=== PATIENT | female | born 1950 | race Caucasian/White ===

== ENCOUNTER 2018-04-19 16:35 | Inpatient (IN) | payer MEDICARE, MEDICAID ==
[~2018-04-19] VITALS: Ht 162.6 cm; Wt 68.0 kg
[2018-04-19] VITALS: BP 125/59
--- NOTE | 2018-04-19 17:00 | NUR ---
ED Nurse Note: Pt AAOx4. pt. brought in by ambulance from [facility] due to low abdominal pain without N/V/D. Reports no pain at abdominal pain at this time
--- NOTE | 2018-04-19 17:26 | Emergency Room Report ---
History of Present Illness General Chief Complaint: Abdominal Pain Source: Medical Record Present Illness HPI 67-year-old female presents to the emergency department [facility] for complaints of abdominal pain and diarrhea as today. Patient reports that she does not have any pain today and has had normal bowel movements. Patient states that 3 days ago she had some nausea and 2 episodes of vomiting which resolves and then she had onset of her bowel symptoms. Patient reports cramping abdominal pain that was migratory she denies fevers or chills she denies blood in her stool. Patient works history of chronic cellulitis in the bilateral lower extremities. She denies chest pain, palpitations, shortness of breath, dizziness or sudden onset of the headache. reports hx of DM. Allergies: Coded Allergies: No Known Allergies (Unverified , 04/19/18) Patient History Past Medical History: see triage record, DM Past Surgical History: none Pertinent Family History: none Reviewed Nursing Documentation: PMH: Agreed; PSxH: Agreed Nursing Documentation-PMH Past Medical History: No History, Except For Hx Cardiac Problems: Yes - Hyperlipidemia Hx Hypertension: Yes Hx Diabetes: Yes Hx Gastrointestinal Problems: Yes - dysphagia Review of Systems All Other Systems: negative except mentioned in HPI Physical Exam Vital Signs Date Time Temp Pulse Resp B/P (MAP) Pulse Ox O2 Delivery O2 Flow Rate FiO2 04/19/18 16:39 99.1 77 18 128/65 94 Room Air Sp02 EP Interpretation: reviewed, normal General Appearance: no apparent distress, alert, GCS 15, non-toxic Head: normocephalic, atraumatic Eyes: bilateral eye normal inspection, bilateral eye PERRL ENT: hearing grossly normal, normal voice Neck: full range of motion Respiratory: lungs clear, normal breath sounds, speaking full sentences Cardiovascular #1: regular rate, rhythm Gastrointestinal: normal bowel sounds, non tender, soft, non-distended, no guarding Rectal: deferred Genitourinary: normal inspection, no CVA tenderness Musculoskeletal: back normal, normal range of motion, inflammation - bilateral lower extremities- garcia/calf- wound care wrapping on bilateral LE's Neurologic: alert, oriented x3, responsive, motor strength/tone normal, sensory intact, speech normal, grossly normal Psychiatric: judgement/insight normal Skin: normal color, no rash, warm/dry, well hydrated Medical Decision Making PA Attestation Dr. Mills is my supervising Physician whom patient management has been discussed with. Diagnostic Impression: Primary Impression: UTI (urinary tract infection) Qualified Codes: N30.01 - Acute cystitis with hematuria Additional Impression: Abdominal pain Qualified Codes: R10.30 - Lower abdominal pain, unspecified ER Course 67-year-old female presents to the emergency department sent in from [facility] for complaints of abdominal pain and diarrhea as today. Patient reports that she does not have any pain today and has had normal bowel movements. Patient states that 3 days ago she had some nausea and 2 episodes of vomiting which resolves and then she had onset of her bowel symptoms. Patient reports cramping abdominal pain that was migratory she denies fevers or chills she denies blood in her stool. Patient works history of chronic cellulitis in the bilateral lower extremities. She denies chest pain, palpitations, shortness of breath, dizziness or sudden onset of the headache. Ddx considered but are not limited to Diverticulitis, acute appy, diarrhea,UC, PUD, GE, pancreatitis, gallstone Vital signs: are WNL, pt. is afebrile H&PE are most consistent with dehydration, mild. ORDERS: -CBC, CMP, lipase, UA ED INTERVENTIONS: -- 1000NS DISPOSITION: at this time pt. will be admitted to Dr. Valdez for UTI. Dr. Valdez agreed to admit the pt. and to continue pt. care management. Labs Test 04/19/18 17:27 04/19/18 17:46 White Blood Count 8.8 K/UL (4.8-10.8) Red Blood Count 4.55 M/UL (4.20-5.40) Hemoglobin 11.8 G/DL (12.0-16.0) Hematocrit 37.1 % (37.0-47.0) Mean Corpuscular Volume 81 FL (80-99) Mean Corpuscular Hemoglobin 25.8 PG (27.0-31.0) Mean Corpuscular Hemoglobin Concent 31.7 G/DL (32.0-36.0) Red Cell Distribution Width 15.0 % (11.6-14.8) Platelet Count 279 K/UL (150-450) Mean Platelet Volume 5.7 FL (6.5-10.1) Neutrophils (%) (Auto) 69.2 % (45.0-75.0) Lymphocytes (%) (Auto) 18.9 % (20.0-45.0) Monocytes (%) (Auto) 8.2 % (1.0-10.0) Eosinophils (%) (Auto) 3.5 % (0.0-3.0) Basophils (%) (Auto) 0.2 % (0.0-2.0) Sodium Level 129 MMOL/L (136-145) Potassium Level 4.6 MMOL/L (3.5-5.1) Chloride Level 92 MMOL/L (98-107) Carbon Dioxide Level 31 MMOL/L (21-32) Anion Gap 6 mmol/L (5-15) Blood Urea Nitrogen 19 mg/dL (7-18) Creatinine 0.9 MG/DL (0.55-1.30) Estimat Glomerular Filtration Rate > 60 mL/min (>60) Glucose Level 117 MG/DL (74-106) Calcium Level 9.7 MG/DL (8.5-10.1) Total Bilirubin 0.3 MG/DL (0.2-1.0) Aspartate Amino Transf (AST/SGOT) 16 U/L (15-37) Alanine Aminotransferase (ALT/SGPT) 29 U/L (12-78) Alkaline Phosphatase 89 U/L (46-116) Troponin I 0.000 ng/mL (0.000-0.056) Total Protein 7.7 G/DL (6.4-8.2) Albumin 3.0 G/DL (3.4-5.0) Globulin 4.7 g/dL Albumin/Globulin Ratio 0.6 (1.0-2.7) Lipase 65 U/L (73-393) Urine Color Pale yellow Urine Appearance Turbid Urine pH 7 (4.5-8.0) Urine Specific [place] 1.010 (1.005-1.035) Urine Protein 3+ (NEGATIVE) Urine Glucose (UA) Negative (NEGATIVE) Urine Ketones Negative (NEGATIVE) Urine Blood 5+ (NEGATIVE) Urine Nitrite Negative (NEGATIVE) Urine Bilirubin Negative (NEGATIVE) Urine Urobilinogen Normal MG/DL (0.0-1.0) Urine Leukocyte Esterase 3+ (NEGATIVE) Urine RBC 2-4 /HPF (0 - 2) Urine WBC Tntc /HPF (0 - 2) Urine Squamous Epithelial Cells Few /LPF (NONE/OCC) Urine Bacteria Many /HPF (NONE) EKG Diagnostic Results EP Interpretation: Dr. Mills Rate: normal - 73 bpm Rhythm: NSR ST Segments: no acute changes ASA given to the pt in ED: No PA Scribe Text This Interpretation was scribed by AIDA Ferrara. Last Vital Signs Date Time Temp Pulse Resp B/P (MAP) Pulse Ox O2 Delivery O2 Flow Rate FiO2 04/19/18 16:39 99.1 77 18 128/65 94 Room Air Disposition: ADMITTED INPATIENT Condition: Serious Julia Ferrara Apr 19, 2018 17:26
--- NOTE | 2018-04-19 17:47 | NUR ---
ED Nurse Note: unable to scan the IV bag fluid. Scaner not scanning
[2018-04-19 17:56] LABS: BASOPHILS % (AUTO) 0.2 % (0.0-2.0); EOSINOPHILS % (AUTO) 3.5 % (0.0-3.0); HEMATOCRIT 37.1 % (37.0-47.0); HEMOGLOBIN 11.8 G/DL (12.0-16.0); LYMPHOCYTES % (AUTO) 18.9 % (20.0-45.0); MEAN CORPUSCULAR VOLUME 81 FL (80-99); MONOCYTES % (AUTO) 8.2 % (1.0-10.0); NEUTROPHILS % (AUTO) 69.2 % (45.0-75.0); PLATELET COUNT 279 K/UL (150-450); RED BLOOD COUNT 4.55 M/UL (4.20-5.40); WHITE BLOOD COUNT 8.8 K/UL (4.8-10.8)
[2018-04-19 17:59] LABS: APPEARANCE,URINE TURBID; BILIRUBIN, URINE NEGATIVE (NEGATIVE); COLOR,URINE PALE YELLOW; GLUCOSE, URINE (UA) NEGATIVE (NEGATIVE); KETONES,URINE NEGATIVE (NEGATIVE); LEUKOCYTE ESTERASE ,URINE 3+ (NEGATIVE); NITRITE,URINE NEGATIVE (NEGATIVE); PH,URINE 7 (4.5-8.0); PROTEIN,URINE 3+ (NEGATIVE); UROBILINOGEN,URINE NORMAL MG/DL (0.0-1.0)
[2018-04-19 18:12] LABS: ANION GAP 6 mmol/L (5-15); BLOOD UREA NITROGEN 19 mg/dL (7-18); CALCIUM 9.7 MG/DL (8.5-10.1); CARBON DIOXIDE 31 MMOL/L (21-32); CHLORIDE 92 MMOL/L (98-107); CREATININE 0.9 MG/DL (0.55-1.30); POTASSIUM 4.6 MMOL/L (3.5-5.1); SODIUM 129 MMOL/L (136-145)
[2018-04-19 18:14] VITALS: BP 145/67
[2018-04-19 18:16] LABS: ALANINE AMINOTRANSFERASE 29 U/L (12-78); ALBUMIN/GLOBULIN RATIO 0.6 (1.0-2.7); ALKALINE PHOSPHATASE 89 U/L (46-116); ASPARTATE AMINO TRANSFERASE 16 U/L (15-37); BILIRUBIN,TOTAL 0.3 MG/DL (0.2-1.0)
[2018-04-19] MEDS ORDERED: MELATONIN3 MG ORAL (18:41)
[2018-04-19] MEDS ORDERED: CLOPIDOGREL75 MG ORAL (18:41)
[2018-04-19] MEDS ORDERED: CULTURELLE1 EACH ORAL (18:41)
[2018-04-19] MEDS ORDERED: ZOSYN 3.373.375 GM/1 IVPB (18:41)
[2018-04-19] MEDS ORDERED: VANCOMYCIN1 GM/200 M IV (18:41)
[2018-04-19] MEDS ORDERED: LORATADINE10 M2 PO (18:41)
[2018-04-19] MEDS ORDERED: ASPIR 8181 MG ORAL (18:41)
[2018-04-19] MEDS ORDERED: LIDOCAINE700 M1 TP (18:41)
[2018-04-19] MEDS ORDERED: VITAMIN B-12500 MCG ORAL (18:41)
[2018-04-19] MEDS ORDERED: FLUTICASONE PRO16 G1 NASAL (18:41)
[2018-04-19] MEDS ORDERED: METOPROLOL TART25 MG ORAL (18:41)
[2018-04-19] MEDS ORDERED: ALLOPURINOL100 M1 ORAL (18:41)
[2018-04-19] MEDS ORDERED: OXYBUTYNIN CHLOR5 M1 ORAL (18:41)
[2018-04-19] MEDS ORDERED: GABAPENTIN800 MG ORAL (18:41)
[2018-04-19] MEDS ORDERED: ATORVASTATIN CA80 MG ORAL (18:41)
--- NOTE | 2018-04-19 19:10 | NUR ---
ED Nurse Note: Received report from Alix/ NATALIA. Pt is A/O X4. VSS. waitng for bed to transfer.
--- NOTE | 2018-04-19 21:45 | NUR ---
TRANSFER TO FLOOR: Patient transferred to / 303 as ordered . Report given to Mariangel Estrella/NATALIA. Belongings sent with Pt and rechecked with RN.
--- NOTE | 2018-04-19 21:55 | NUR ---
PT ADMITTED FROM ER VIA GURNEY,ALERT AND ORIENTED.CALL LIGHT REACH TO PT.
[2018-04-19 22:00] VITALS: BP 144/72
[2018-04-20] VITALS: BP 125/59
--- NOTE | 2018-04-20 01:00 | NUR ---
HAND-OFF: Report given to RADHIKA FISHER.
--- NOTE | 2018-04-20 01:15 | NUR ---
NURSE NOTES: Pt in bed w/bed in lowest position and call light within reach. Pt A&Ox4, VSS, and in no apparent distress. IV site intact/asymptomatic w/IVF @ 75 ml/hr and sacral & rt post thigh wounds noted; b/l breast & lt heel redness noted as well but skin otherwise C/D/I. Pt also has jarred wraps around b/l lower leg but refuses for us to remove to assess skin. Per Tanmay, RN, Dr. Valdez did not give complete admission orders and requests a call in the AM. Will continue to monitor.
[2018-04-20] MEDS ORDERED: METFORMIN500 MG/5 M PO (02:10)
[2018-04-20 04:00] VITALS: BP 147/72
[2018-04-20] MEDS: Metoprolol 25mg tab ORAL SCH ×3 (06:07→18:08)
[2018-04-20] MEDS: Oxybutynin 5mg tab ORAL SCH ×3 (06:07→22:12)
[2018-04-20 07:37] LABS: BASOPHILS % (AUTO) 0.3 % (0.0-2.0); EOSINOPHILS % (AUTO) 2.9 % (0.0-3.0); HEMATOCRIT 34.2 % (37.0-47.0); HEMOGLOBIN 11.1 G/DL (12.0-16.0); LYMPHOCYTES % (AUTO) 15.6 % (20.0-45.0); MEAN CORPUSCULAR VOLUME 80 FL (80-99); MONOCYTES % (AUTO) 5.7 % (1.0-10.0); NEUTROPHILS % (AUTO) 75.6 % (45.0-75.0); PLATELET COUNT 289 K/UL (150-450); RED BLOOD COUNT 4.25 M/UL (4.20-5.40); RED CELL DISTRIBUTION WIDTH 15.4 % (11.6-14.8); WHITE BLOOD COUNT 7.2 K/UL (4.8-10.8)
[2018-04-20 08:00] VITALS: BP 140/76
[2018-04-20 08:01] LABS: ALANINE AMINOTRANSFERASE 26 U/L (12-78); ALBUMIN 2.8 G/DL (3.4-5.0); ALBUMIN/GLOBULIN RATIO 0.6 (1.0-2.7); ALKALINE PHOSPHATASE 88 U/L (46-116); ANION GAP 6 mmol/L (5-15); ASPARTATE AMINO TRANSFERASE 25 U/L (15-37); BILIRUBIN,TOTAL 0.4 MG/DL (0.2-1.0); BLOOD UREA NITROGEN 15 mg/dL (7-18); CALCIUM 9.1 MG/DL (8.5-10.1); CARBON DIOXIDE 29 MMOL/L (21-32); CHLORIDE 95 MMOL/L (98-107); CREATININE 0.8 MG/DL (0.55-1.30); SODIUM 130 MMOL/L (136-145)
--- NOTE | 2018-04-20 08:44 | NUR ---
NURSE NOTES: Pt in bed a/o x 4 in no acute distress having breakfast. Patent IV to RAC running fluids as ordered. Pt denies pain. Pt left in bed in low position, call light within reach, bed alarm on.
[2018-04-20] MEDS: Vitamin B-12 500mcg tab ORAL SCH (09:18)
[2018-04-20] MEDS: Lactobacillus-GG tablet ORAL SCH (09:18)
[2018-04-20] MEDS: metFORMIN 500mg tab ORAL SCH ×2 (09:19→18:08)
[2018-04-20] MEDS: Allopurinol 100mg Tab ORAL SCH (09:19)
[2018-04-20] MEDS: Aspirin EC 81mg tab ORAL SCH (09:19)
[2018-04-20 12:00] VITALS: BP 134/85
[2018-04-20] MEDS: Flonase Nasal Inhaler 16gm NASAL SCH ×2 (14:36→18:08)
[2018-04-20 16:00] VITALS: BP 145/80
--- NOTE | 2018-04-20 17:15 | History and Physical Report ---
DATE OF ADMISSION: 04/19/2018 HISTORY OF PRESENT ILLNESS: This is an elderly 67-year-old female, who came to the emergency room for having UTIs, generalized weakness, dehydration, ____, and abdominal pain. PAST MEDICAL HISTORY: Significant for hypertension, hyperlipidemia, chronic obstructive pulmonary disease, cardiac arrhythmia, and diabetes. MEDICATION: See the list. ALLERGIES: NKA. FAMILY HISTORY: Noncontributory. SOCIAL HISTORY: [facility] [place] [facility] PHYSICAL EXAMINATION: GENERAL: This is an elderly cachectic female, currently lives in the bed. VITAL SIGNS: Blood pressure is 134/75 and pulse 88. No fever. CHEST: Bilaterally clear. CARDIOVASCULAR: Regular rhythm. No gallop. No murmur. ABDOMEN: Soft. Positive bowel sounds. EXTREMITIES: CCE. NEUROLOGICAL: The patient has no focal deficits. GENITOURINARY: Deferred. LABORATORY DATA: Sodium was low at 129, potassium 4.6, BUN 15, and creatinine 0.8. Urine shows positive urine blood, 3+ leukocyte esterase, and wbc TNTC. ASSESSMENT: 1. Severe malnutrition. 2. Dehydration. 3. Diabetes. 4. Urinary tract infection. 5. Mild encephalopathy. PLAN: We will currently add antibiotic. Continue IV fluid. Check urine culture. Daniel Valdez M.D. DR: MACARIO JOB#: [id number] CC: OMI
--- NOTE | 2018-04-20 17:58 | Cardiology Report ---
APPROVED REPORT EKG Measurement Heart [id number] NM [id number] Normal sinus rhythm Normal ECG
[2018-04-20] MEDS: cefTRIAXone 1 GM in D5W 55 ML IVPB SCH (18:08)
--- NOTE | 2018-04-20 19:30 | NUR ---
NURSE NOTES: Recieved patient in bed, asleep, but responsive to verbal and tactile stimuli, in no acute distress, bed is locked, in low position and alarm is on, call light is within reach, will continue to monitor for safety and comfort.
--- NOTE | 2018-04-20 19:35 | NUR ---
HAND-OFF: Report given to NATALIA Clemente. Pt left in bed in stable conditon, a/o x 4. Pt left in bed in low position, call light within reach, on SPR mattress, SCD'S on. Patent IV to RAC running as ordered.
[2018-04-20 20:37] VITALS: BP 135/73
[2018-04-20] MEDS: Atorvastatin 80mg tab ORAL SCH (20:46)
--- NOTE | 2018-04-20 21:10 | NUR ---
NURSE NOTES: patient refused bedside blood glucose check, RN educated and explained importance of having this done, patient nodded her head and said "no".
[2018-04-21] VITALS: BP 133/68
[2018-04-21] MEDS: Metoprolol 25mg tab ORAL SCH ×5 (00:08→23:46)
--- NOTE | 2018-04-21 02:30 | NUR ---
NURSE NOTES: Patient refused dressing changes on her existing wound and left hip blister, RN provided education on importance of wound assessment and care, patient stated "no". Current dressing is dry and intact.
[2018-04-21 04:00] VITALS: BP 144/56
[2018-04-21] MEDS: Oxybutynin 5mg tab ORAL SCH ×3 (05:33→22:32)
--- NOTE | 2018-04-21 07:30 | NUR ---
NURSE NOTES: AWAKE/ALERT. PAIN SCALE 10/10. IV INFUSING. IN NO ACUTE DISTRESS.
--- NOTE | 2018-04-21 07:36 | NUR ---
HAND-OFF: Report given to Adrianne FISHER.
[2018-04-21 08:00] VITALS: BP 145/70
[2018-04-21] MEDS: Vitamin B-12 500mcg tab ORAL SCH (09:07)
[2018-04-21] MEDS: Lactobacillus-GG tablet ORAL SCH (09:07)
[2018-04-21] MEDS: metFORMIN 500mg tab ORAL SCH ×2 (09:07→17:23)
[2018-04-21] MEDS: Allopurinol 100mg Tab ORAL SCH (09:07)
[2018-04-21] MEDS: Aspirin EC 81mg tab ORAL SCH (09:07)
[2018-04-21] MEDS: traMADol 50mg tab ORAL PRN ×3 (09:07→20:46)
[2018-04-21] MEDS: Flonase Nasal Inhaler 16gm NASAL SCH ×2 (09:08→17:23)
[2018-04-21] MEDS ORDERED: 1/2 NS 1000ml IV ONE (10:15)
--- NOTE | 2018-04-21 10:15 | Progress Note ---
DATE: 04/21/2018 SUBJECTIVE: The patient is an elderly female, complaining pain on the both legs. She has no fever. No chills. Heart rate improving. Her abdominal pain is improved. OBJECTIVE: VITAL SIGNS: Blood pressure 144/56, pulse 75, no fever. CHEST: Bilaterally clear. CARDIOVASCULAR: Regular rhythm. No gallop. No murmur. ABDOMEN: Soft. Positive bowel sounds. EXTREMITIES: CCE. NEUROLOGIC: Generalized weakness. LABORATORY EXAMINATION: White count 7.2. Chemistry panel, potassium 4 and urine culture so far negative. ASSESSMENT AND PLAN: 1. Abdominal pain. 2. Chronic pain. 3. Hypertension. 4. Generalized weakness. We will discontinue IV fluids. Continue antibiotics and PT and OT. Daniel Valdez M.D. DR: TANJA JOB#: [id number] CC:
[2018-04-21 12:00] VITALS: BP 35/78
[2018-04-21 16:00] VITALS: BP 168/73
[2018-04-21] MEDS: cefTRIAXone 1 GM in D5W 55 ML IVPB SCH (18:11)
--- NOTE | 2018-04-21 18:57 | NUR ---
NURSE NOTES: RESTING IN BED. IN NO ACUTE DISTRESS.
--- NOTE | 2018-04-21 19:27 | NUR ---
HAND-OFF: Report given to Thelma REYES RN.
--- NOTE | 2018-04-21 19:28 | NUR ---
NURSE NOTES: Report taken from NATALIA Silver. Patient A&Ox4, on room air. Skin wounds checked, clean and dry, continue to monitor and apply calizime as necessary. IV site c/d/i, hep locked. Bed in lowest position, call light within reach.
[2018-04-21 20:00] VITALS: BP 140/69
[2018-04-21] MEDS: Atorvastatin 80mg tab ORAL SCH (20:44)
--- NOTE | 2018-04-21 21:00 | NUR ---
NURSE NOTES: Patient refused blood glucose check, "does not like getting fingersticks". RN explained risks and benefits.
[2018-04-22] VITALS: BP 143/66
[2018-04-22 04:00] VITALS: BP 146/67
[2018-04-22] MEDS: Oxybutynin 5mg tab ORAL SCH ×3 (05:26→21:41)
[2018-04-22] MEDS: Metoprolol 25mg tab ORAL SCH ×3 (05:26→17:46)
[2018-04-22] MEDS: traMADol 50mg tab ORAL PRN (05:39)
--- NOTE | 2018-04-22 06:30 | NUR ---
NURSE NOTES: Patient refused blood glucose testing.
--- NOTE | 2018-04-22 07:09 | NUR ---
HAND-OFF: Report given to NATALIA Silver.
--- NOTE | 2018-04-22 07:19 | NUR ---
NURSE NOTES: AWAKE/ALERT. NO C/O PAIN . IN NO DISTRESS.
[2018-04-22 08:00] VITALS: BP 137/83
[2018-04-22] MEDS: Flonase Nasal Inhaler 16gm NASAL SCH ×2 (08:27→17:46)
[2018-04-22] MEDS: Allopurinol 100mg Tab ORAL SCH (08:27)
[2018-04-22] MEDS: Aspirin EC 81mg tab ORAL SCH (08:28)
[2018-04-22] MEDS: Vitamin B-12 500mcg tab ORAL SCH (08:28)
[2018-04-22] MEDS: metFORMIN 500mg tab ORAL SCH ×2 (08:28→17:46)
[2018-04-22] MEDS: Lactobacillus-GG tablet ORAL SCH (08:29)
[2018-04-22 12:00] VITALS: BP 125/64
--- NOTE | 2018-04-22 12:10 | NUR ---
NURSE NOTES: Spoke to Lab that patient positive for MRSA Nares. Notified nursing supervisor histology.
--- NOTE | 2018-04-22 13:49 | NUR ---
NURSE NOTES: TRANSFERRED TO [id number]. VIA BED IN STABLE CONDITION. REPORT GIVEN TO Vladimir LESLIE RN.
--- NOTE | 2018-04-22 14:00 | NUR ---
NURSE NOTES: RN RECEIVED PT REPORT FROM ALISON LESLIE. PT IN NO APPARENT DISTRESS AT THIS TIME. DENIES PAIN. BELONGIGNS CHECKED AT BEDSIDE WITH ALL BELONGINGS NOTED. PT DOES NOT WANT RN TO CHECK PURSE BUT STATES SHE HAS CELLPHONE IN BAG. PT ORIENTED TO ROOM AND EDUCATED HEBREW TEACHER LIGHT. CALL LIGHT WITHIN REACH. BED IN LOWEST POSITION WITH BEDSIDE RAILS X3 RAISED. WILL CONTINUE TO MONITOR.
[2018-04-22 16:00] VITALS: BP 154/70
[2018-04-22] MEDS: cefTRIAXone 1 GM in D5W 55 ML IVPB SCH (17:45)
--- NOTE | 2018-04-22 18:44 | Progress Note ---
DATE: 04/22/2018 SUBJECTIVE: This is an elderly female, currently in the bed comfortable. Abdominal pain is better. OBJECTIVE: VITAL SIGNS: Stable. CHEST: Bilaterally clear. CARDIOVASCULAR: Regular rhythm. ABDOMEN: Soft. Positive bowel sounds. Nontender. EXTREMITIES: No edema. ASSESSMENT: 1. Urinary tract infection. 2. Dehydration. 3. Chronic pain. 4. Severe arthritis. 5. Diabetes. PLAN: Continue antibiotics. Continue PT and OT. Continue current medical treatment. Daniel Valdez M.D. DR: ESPINOZA JOB#: [id number] CC:
--- NOTE | 2018-04-22 19:30 | NUR ---
HAND-OFF: Report given to Ramu MCDONALD RN.
--- NOTE | 2018-04-22 19:40 | NUR ---
NURSE NOTES: Received patient in bed, awake and alertx4, No acute distress noted, Iv site is intact and no filtration noted, Bed is lowest position and locked, Instructed how to use call light, Call light and needs within reach, Will continue to monitor.
[2018-04-22 20:00] VITALS: BP 147/75
[2018-04-22] MEDS: Atorvastatin 80mg tab ORAL SCH (21:40)
[2018-04-23] VITALS: BP 159/82
[2018-04-23] MEDS: Metoprolol 25mg tab ORAL SCH ×4 (00:34→18:11)
[2018-04-23 04:00] VITALS: BP 168/91
[2018-04-23] MEDS: Oxybutynin 5mg tab ORAL SCH ×3 (05:35→21:23)
[2018-04-23 08:00] VITALS: BP 154/88
--- NOTE | 2018-04-23 08:00 | NUR ---
NURSE NOTES: received patient in bed, awake, no complaint of pain or discomfort. Patient has RAC IV access, dry and intact. Call light within easy reach, siderails up x3, bed locked at the lowest position possible. patinet on external catheter Pureweek. Will continue to monitor patient and follow up with the plan of care.
[2018-04-23] MEDS: Aspirin EC 81mg tab ORAL SCH (09:57)
[2018-04-23] MEDS: Vitamin B-12 500mcg tab ORAL SCH (09:57)
[2018-04-23] MEDS: Allopurinol 100mg Tab ORAL SCH (09:58)
[2018-04-23] MEDS: metFORMIN 500mg tab ORAL SCH ×2 (09:58→18:12)
[2018-04-23] MEDS: Lactobacillus-GG tablet ORAL SCH (09:58)
[2018-04-23] MEDS: Flonase Nasal Inhaler 16gm NASAL SCH ×2 (10:06→18:11)
[2018-04-23 12:00] VITALS: BP 179/87
--- NOTE | 2018-04-23 15:30 | Progress Note ---
DATE: 04/23/2018 SUBJECTIVE: This is an elderly female. Abdominal pain resolved, doing fine. OBJECTIVE: VITAL SIGNS: Blood pressure is 168/91, pulse 74. CHEST: Bilateral clear. CARDIOVASCULAR: Regular rhythm. ABDOMEN: Soft. EXTREMITIES: CCE NEUROLOGICALLY: No focal deficit. ASSESSMENT: 1. Uncontrolled high blood pressure. 2. Urinary tract infection. 3. Abdominal pain. The patient is currently doing better. 4. Discharge plan to SNF or home. We will discuss with the case fitter. Daniel Valdez M.D. DR: Syd JOB#: [id number] CC:
[2018-04-23 16:00] VITALS: BP 170/86
[2018-04-23] MEDS: cefTRIAXone 1 GM in D5W 55 ML IVPB SCH (18:23)
--- NOTE | 2018-04-23 19:58 | NUR ---
HAND-OFF: Report given to NATALIA Rivera.
--- NOTE | 2018-04-23 20:01 | NUR ---
NURSE NOTES: Received patient awake,alert,verbal,resting in bed,no complaints.
[2018-04-23 20:13] VITALS: BP 173/90
[2018-04-23] MEDS: Atorvastatin 80mg tab ORAL SCH (21:23)
[2018-04-24] VITALS (7 sets, daily range): BP systolic 120–142; BP diastolic 59–85
[2018-04-24] MEDS: Oxybutynin 5mg tab ORAL SCH ×2 (05:22→13:09)
[2018-04-24] MEDS: Metoprolol 25mg tab ORAL SCH ×4 (05:22→17:17)
--- NOTE | 2018-04-24 07:16 | NUR ---
HAND-OFF: Report given to Ana Bingham RN.
--- NOTE | 2018-04-24 07:22 | NUR ---
NURSE NOTES: Patient alert x4, in room air, no sign of shortness of breath and no sign of chest pain. Skin- redness on secral and lef and right breast folds. IV RAC salen lock. Isolation for MRSA-nares, sign at the door. Bed at lowest position, side rails up x2, breaks engaged. Incontinent x2, purik in place. Will keep monitoring blood sugar. Call light within reach. Will keep monitoring.
[2018-04-24] MEDS: Aspirin EC 81mg tab ORAL SCH (08:10)
[2018-04-24] MEDS: Lactobacillus-GG tablet ORAL SCH (08:11)
[2018-04-24] MEDS: Vitamin B-12 500mcg tab ORAL SCH (08:11)
[2018-04-24] MEDS: metFORMIN 500mg tab ORAL SCH ×2 (08:11→17:17)
[2018-04-24] MEDS: Allopurinol 100mg Tab ORAL SCH (08:12)
[2018-04-24] MEDS: Flonase Nasal Inhaler 16gm NASAL SCH ×2 (08:22→17:16)
[2018-04-24] MEDS: traMADol 50mg tab ORAL PRN (08:49)
--- NOTE | 2018-04-24 10:54 | NUR ---
NURSE NOTES: Patient asked RN to fax a paper, Charge nurse notified, and faxed the paper.
--- NOTE | 2018-04-24 11:34 | NUR ---
NURSE NOTES: Patient refused her blood sugar to be checked.
--- NOTE | 2018-04-24 11:58 | NUR ---
*-* DISCHARGE PLANNING PATIENT HAS BEEN REFERRED BACK TO: [facility] [place] P:[phone] F:[phone]
--- NOTE | 2018-04-24 12:09 | NUR ---
RD ASSESSMENT & RECOMMENDATIONS SEE CARE ACTIVITY FOR COMPLETE ASSESSMENT DAILY ESTIMATED NEEDS: Needs based on Wound, DM 51kg adj 25-35 kcals/kg 5095-4576 total kcals 1.25-1.5 g protein/kg 64-77 g total protein 25-30 mL/kg 9191-2837 total fluid mLs NUTRITION DIAGNOSIS: Increased protein needs r/t wound healing as evidenced by pt w/ sacral pressure ulcer. CURRENT DIET: Regular PO DIET RECOMMENDATIONS: regular diet, soft easy chew ADDITIONAL RECOMMENDATIONS: 1) Obtain a calibrated bed scale wt 2) A1C as able 3) Add CLEM BID + MVI x1 for skin integrity 4) Updated labs as able, replete lytes as needed
--- NOTE | 2018-04-24 13:39 | NUR ---
*-* DISCHARGE PLANNED PATIENT IS DISCHARGED BACK TO: [facility] ROOM# [id number]-A SKILLED T:[phone] FOR NURSE TO NURSE REPORT [facility] HAS BEEN ARRANGED FOR INSTRUCTIONAL WRITER AT [address] [id number] Addendum: 04/24/18 at 1343 by ZARINA KLINE CM *-* TRIED CALLING [facility] TO NOTIFY PATIENT WAS BEING TX BACK TO [facility] UNFORTUNATELY THE NUMBER IS NOT TAKING ANY CALL AT THE TIME
--- NOTE | 2018-04-24 14:42 | NUR ---
NURSE NOTES: When I went to patient room to take pictures of the secral and breast fold picture before discharge, patient said he is not leaving, don't have any where to go and does not wanna be discharge to the facility patient came from. Charge nurse, Beth notified and Jeannette, case management aware.
--- NOTE | 2018-04-24 17:11 | NUR ---
NURSE NOTES: I spoke with [facility], because of the rain said, they stack in a traffic, they said will be here in 20-25 minutes. Charge nurse Beth is aware.
--- NOTE | 2018-04-24 18:31 | NUR ---
NURSE NOTES: Patient discharged around 1824, accompanied by ambulance personnel to [facility]. Report given to Gosia at [facility]. IV access and name tag removed before discharge. Belonging lists signed by patient and RN. Wound picture take and wound care provided before discharge. Wound pictures downloaded on file. Patient was stable upon discharge. Patient left the floor accompanied by ambulance personnel by jayant.
[2018-04-24] MEDS ORDERED: Tubing IV Secondary IV ONE (18:37)
--- NOTE | 2018-04-24 21:42 | Consultation ---
History of Present Illness General Date patient seen: Apr 19, 2018 Chief Complaint: Abdominal Pain Present Illness HPI 67-year-old female, pw UTIs, generalized weakness, dehydration, and abdominal pain. The pt has hx of anxiety and insomnia. the pt has cognitive impairment. The pt takes melatonin. the pt was disoriented to date. the pt was awake at night and sleepy during the day. Allergies: Coded Allergies: No Known Allergies (Unverified , 04/19/18) Medication History Scheduled Allopurinol* (Allopurinol*), 200 MG ORAL DAILY, (Reported) Aspirin* (Aspir 81*), 81 MG ORAL DAILY, (Reported) Atorvastatin Calcium* (Lipitor*), 80 MG ORAL BEDTIME, (Reported) Clopidogrel* (Clopidogrel*), 75 MG ORAL DAILY, (Reported) Cyanocobalamin (Vitamin B-12)* (Vitamin B-12*), 1,000 MCG ORAL DAILY, (Reported) Fluticasone Propionate* (Fluticasone Propionate*), 2 SPRAY NASAL BID, (Reported) Gabapentin* (Gabapentin*), 800 MG ORAL THREE TIMES A DAY, (Reported) Lactobacillus Rhamnosus Gg* (Culturelle*), 1 CAP ORAL DAILY, (Reported) Lidocaine (Lidocaine), 700 MG TP DAILY, (Reported) Loratadine (Loratadine), 10 MG PO DAILY, (Reported) Melatonin (Melatonin), 3 MG ORAL BEDTIME, (Reported) Metformin HCl (Metformin HCl), 500 MG PO BID, (Reported) Metoprolol Tartrate* (Metoprolol Tartrate*), 12.5 MG ORAL EVERY 6 HOURS, ( Reported) Oxybutynin Chloride (Oxybutynin Chloride), 5 MG ORAL Q8HR, (Reported) Duhxuelnophw-Sdyz-Rdrqlkrk,Iso (Zosyn 3.375 Gm Pre Mix-Bag), 3.375 GM IVPB EVERY 8 HOURS, (Reported) Vancomycin Hcl/D5w (Vancomycin Hcl 1G/200 Ml Bag), 1 GM IV Q12HR, (Reported) Patient History Limited by: medical condition History Provided By: Patient, Medical Record, PMD Healthcare decision maker Resuscitation status Advanced Directive on File Yes Review of Systems Psychiatric: Reports: prior hx, anxiety, emotional problems Physical Exam General Appearance: WD/WN, no apparent distress, alert, confused Last 24 Hour Vital Signs Date Time Temp Pulse Resp B/P (MAP) Pulse Ox O2 Delivery O2 Flow Rate FiO2 04/24/18 17:17 67 137/76 04/24/18 16:00 98.0 67 20 137/76 (96) 98 04/24/18 12:39 61 131/64 04/24/18 12:00 97.9 61 18 131/64 (86) 98 04/24/18 09:19 97.0 04/24/18 09:00 Room Air 04/24/18 08:00 97.0 65 18 142/65 (90) 96 04/24/18 05:22 71 125/61 04/24/18 04:00 97.9 71 18 125/61 (82) 99 04/24/18 00:08 98.3 69 18 120/59 (79) 98 04/24/18 00:00 69 120/59 04/23/18 22:02 98.0 Intake and Output 04/23/18 04/24/18 19:00 07:00 Intake Total 1255 ml 250 ml Balance 1255 ml 250 ml Intake Oral 1200 ml 250 ml IV Total 55 ml # Voids 8 9 Height (Feet): 5 Height (Inches): 4.00 Weight (Pounds): 150 Assessment/Plan Problem List: (1) encephalopathy due to toxin Assessment/Plan remeron 7.5mg qhs treat the underlying cause of uti provided ro/Milly Colon MD Apr 24, 2018 21:42
--- NOTE | 2018-04-24 21:46 | General Progress Note ---
Assessment/Plan Problem List: (1) encephalopathy due to toxin Status: doing well, stable, progressing Assessment/Plan remeron 7.5mg qhs treat the underlying cause of uti provided ro/st Subjective Neurologic/Psychiatric: Reports: anxiety, emotional problems Allergies: Coded Allergies: No Known Allergies (Unverified , 04/19/18) Objective Last 24 Hour Vital Signs Date Time Temp Pulse Resp B/P (MAP) Pulse Ox O2 Delivery O2 Flow Rate FiO2 04/24/18 17:17 67 137/76 04/24/18 16:00 98.0 67 20 137/76 (96) 98 04/24/18 12:39 61 131/64 04/24/18 12:00 97.9 61 18 131/64 (86) 98 04/24/18 09:19 97.0 04/24/18 09:00 Room Air 04/24/18 08:00 97.0 65 18 142/65 (90) 96 04/24/18 05:22 71 125/61 04/24/18 04:00 97.9 71 18 125/61 (82) 99 04/24/18 00:08 98.3 69 18 120/59 (79) 98 04/24/18 00:00 69 120/59 04/23/18 22:02 98.0 Intake and Output 04/23/18 04/24/18 19:00 07:00 Intake Total 1255 ml 250 ml Balance 1255 ml 250 ml Intake Oral 1200 ml 250 ml IV Total 55 ml # Voids 8 9 Height (Feet): 5 Height (Inches): 4.00 Weight (Pounds): 150 General Appearance: WD/WN, no apparent distress, alert, obese Neurologic: oriented x 3, responsive, depressed affect Milly Torres MD Apr 24, 2018 21:46
--- NOTE | 2018-04-25 02:00 | Discharge Summary ---
DATE OF ADMISSION: 04/19/2018 DATE OF DISCHARGE: 04/24/2018 HOSPITAL COURSE: This is an elderly female who came into the emergency room for abdominal pain, nausea, and vomiting. The patient was admitted in medical floor, given IV fluids, IV antibiotics, clinically has improved. Hospital course was otherwise unremarkable. DISCHARGE DIAGNOSES: 1. Urinary tract infection. 2. Abdominal pain. 3. Weight loss. DIET: She is on regular diet. ACTIVITY: As tolerated. DISCHARGE MEDICATIONS: See the list from the hospital. Daniel Valdez M.D. DR: JUAN JOB#: [id number] CC:
--- NOTE | 2018-04-25 10:55 | Discharge Summary ---
Discharge Summary Hospital Course Date of Admission Apr 19, 2018 at 18:49 Date of Discharge Apr 24, 2018 at 18:38 Admitting Diagnosis abdominal pain Reason for Hospitalization: UTI, abd pain HPI Deborah Kidd is a 67 year old female who was admitted on Apr 19, 2018 at 18:49 for Abdominal Pain and UTI Consultations dr Torres Hospital Course see Dr José Miguel campos summary FINAL DIAGNOSES Encephalopathy due to toxin Urinary tract infection Dehydration Hypertension, out of control Severe arthritis Chronic pain secondary to severe arthritis Discharge Medications Continued Medications: Allopurinol* (Allopurinol*) 100 Mg Tablet 200 MG ORAL DAILY, TAB (This prescription has been renewed) Aspirin* (Aspir 81*) 81 Mg Tablet.dr 81 MG ORAL DAILY, TAB (This prescription has been renewed) Atorvastatin Calcium* (Lipitor*) 80 Mg Tablet 80 MG ORAL BEDTIME, TAB (This prescription has been renewed) Clopidogrel* (Clopidogrel*) 75 Mg Tablet 75 MG ORAL DAILY, TAB (This prescription has been renewed) Cyanocobalamin (Vitamin B-12)* (Vitamin B-12*) 500 Mcg Tablet 1000 MCG ORAL DAILY, #30 TAB 0 Refills (This prescription has been renewed) Fluticasone Propionate* (Fluticasone Propionate*) 16 Gm Malone.susp 2 SPRAY NASAL BID, #16 GM (This prescription has been renewed) Gabapentin* (Gabapentin*) 800 Mg Tablet 800 MG ORAL THREE TIMES A DAY, TAB (This prescription has been renewed) Lactobacillus Rhamnosus Gg* (Culturelle*) 1 Each Capsule 1 CAP ORAL DAILY, CAP (This prescription has been renewed) Lidocaine (Lidocaine) 1 Each Adh..patch 700 MG TP DAILY, PATCH (This prescription has been renewed) Loratadine (Loratadine) 10 Mg Tablet 10 MG PO DAILY, TAB (This prescription has been renewed) Melatonin (Melatonin) 3 Mg Tablet 3 MG ORAL BEDTIME, TAB (This prescription has been renewed) Metformin HCl (Metformin HCl) 500 Mg/5 Ml Solution 500 MG PO BID (This prescription has been renewed) Metoprolol Tartrate* (Metoprolol Tartrate*) 25 Mg Tablet 12.5 MG ORAL EVERY 6 HOURS, TAB (This prescription has been renewed) Oxybutynin Chloride (Oxybutynin Chloride) 5 Mg Tablet 5 MG ORAL Q8HR, #30 TAB 0 Refills (This prescription has been renewed) Discharge Discharge Disposition Patient was discharged to SNF/Subacute Facility(03) Discharge Instructions Discharge Instructions Special Instructions I have been assigned to complete a D/C Summary on this account. I was not involved in the patient management Wendi Grande NP Apr 25, 2018 10:55
== END 2018-04-24 18:38 | DRG 689 ==
LOC: EDBD 16:35 → EMR 17:55 → 3E 18:49 → EDBEDREQ 20:51 → 4E 04-22 13:39
DX: N39.0 Urinary tract infection, site not specified (principal); E43 Unspecified severe protein-calorie malnutrition; G92 Toxic encephalopathy; R19.7 Diarrhea, unspecified; E86.0 Dehydration; R13.10 Dysphagia, unspecified; E11.9 Type 2 diabetes mellitus without complications; I10 Essential (primary) hypertension; M19.90 Unspecified osteoarthritis, unspecified site; G89.29 Other chronic pain; E78.5 Hyperlipidemia, unspecified; Z68.39 Body mass index [BMI] 39.0-39.9, adult
CPT/HCPCS: 36415; 80053; 81003; 83690; 84484; 85025; 87081; 87086; 93005; 96360; 99285